=== PATIENT | female | born 1995 | race Caucasian/White ===

== ENCOUNTER 2017-01-22 00:39 | Emergency (ER) | payer MEDICAID ==
[2017-01-22 01:30] LABS: BASOPHIL % 0.7 % (0-2); PLATELET COUNT 234 x10^3mcL (130-400)
[2017-01-22 01:32] LABS: RED CELL DISTRIBUTION WIDTH 19.9 % (11.5-14.5)
[2017-01-22 01:46] LABS: CALCIUM 8.6 mg/dL (8.5-10.1); CARBON DIOXIDE 29.5 mmol/L (21-32); CHLORIDE SERUM 104 mmol/L (98-107); CREATININE SERUM 0.7 mg/dL (0.6-1.0); GFR1 > 60 mL/min; GLUCOSE SERUM 106 mg/dL (74-106); POTASSIUM SERUM 3.6 mmol/L (3.5-5.1); SODIUM SERUM 140 mmol/L (136-145)
[2017-01-22 02:02] LABS: ALBUMIN 3.7 g/dL (3.4-5.0); ALKALINE PHOSPHATASE 79 U/L (46-116); ALT/SGPT 22 U/L (14-59); AMYLASE 52 U/L (25-115); AST/SGOT 17 U/L (15-37); BILIRUBIN TOTAL 0.22 mg/dL (0.20-1.00); LIPASE 121 IU/L (73-393); TOTAL PROTEIN, SERUM 8.1 g/dL (6.4-8.2)
[2017-01-22 04:02] VITALS: BP 125/56
== END 2017-01-22 04:02 | disposition home or self-care (01) ==
LOC: ED 00:39
PROVIDERS: Specialist
DX: K80.50 Calculus of bile duct without cholangitis or cholecystitis without obstruction (principal)
CPT/HCPCS: 83880; J1885; J2405; J3010; Q0092

== ENCOUNTER 2018-07-16 14:00 | Inpatient (IN) | payer MEDICAID ==
[~2018-07-16] VITALS: Ht 157.5 cm; Wt 111.1 kg
[2018-07-16 14:31] VITALS: Ht 157.5 cm; Wt 111.1 kg
[2018-07-16 16:27] LABS: CALCIUM 8.2 mg/dL (8.5-10.1); CARBON DIOXIDE 26.4 mmol/L (21-32); CHLORIDE SERUM 107 mmol/L (98-107); CREATININE SERUM 0.6 mg/dL (0.6-1.0); GFR1 > 60 mL/min; GLUCOSE SERUM 102 mg/dL (74-106); SODIUM SERUM 143 mmol/L (136-145)
[2018-07-16 16:29] LABS: BASOPHIL % 0.6 % (0-2); PLATELET COUNT 246 x10^3mcL (130-400)
[2018-07-16 16:36] LABS: RED CELL DISTRIBUTION WIDTH 18.6 % (11.5-14.5)
[2018-07-16 16:37] LABS: rbc morphology (normal/abnorm) ABNORMAL (NORMAL)
[2018-07-16 16:38] LABS: ALBUMIN 3.5 g/dL (3.4-5.0); ALKALINE PHOSPHATASE 61 U/L (46-116); ALT/SGPT 19 U/L (14-59); AST/SGOT 12 U/L (15-37); BILIRUBIN TOTAL 0.36 mg/dL (0.20-1.00); TOTAL PROTEIN, SERUM 7.5 g/dL (6.4-8.2)
[2018-07-16 18:27] LABS: MAGNESIUM 2.1 mg/dL (1.8-2.4); PHOSPHOROUS 3.9 mg/dL (2.5-4.9)
[2018-07-16 19:22] LABS: microscopic required? YES; urine erythrocyte 3+ (NEGATIVE)
[2018-07-16 20:21] VITALS: BP 104/46
[2018-07-16 23:40] VITALS: BP 105/49
[2018-07-17 05:32] VITALS: BP 99/50
[2018-07-17 06:21] LABS: CALCIUM 8.4 mg/dL (8.5-10.1); CARBON DIOXIDE 26.8 mmol/L (21-32); CHLORIDE SERUM 107 mmol/L (98-107); CREATININE SERUM 0.7 mg/dL (0.6-1.0); GFR1 > 60 mL/min; GLUCOSE SERUM 86 mg/dL (74-106); POTASSIUM SERUM 4.2 mmol/L (3.5-5.1); SODIUM SERUM 141 mmol/L (136-145)
[2018-07-17 07:49] LABS: BASOPHIL % 0.6 % (0-2); PLATELET COUNT 221 x10^3mcL (130-400)
[2018-07-17 08:21] LABS: RED CELL DISTRIBUTION WIDTH 21.1 % (11.5-14.5)
[2018-07-17 08:50] VITALS: BP 96/52
[2018-07-17] MEDS ORDERED: FERROUS SULFAT325 M2 PO (12:00)
[2018-07-17 12:23] VITALS: BP 96/52
== END 2018-07-17 13:10 | disposition home or self-care (01) | DRG 663 ==
LOC: ED 14:00 → DU 17:55 → MU 20:20 → DU 20:21
PROVIDERS: Emergency Medicine; ADMIT Internal Medicine
PROC: 30233N1 Transfusion of Nonautologous Red Blood Cells into Peripheral Vein, Percutaneous Approach (ICD-10-PCS; principal; 2018-07-16)
DX: D62 Acute posthemorrhagic anemia (principal); N17.0 Acute kidney failure with tubular necrosis; N93.8 Other specified abnormal uterine and vaginal bleeding; E66.01 Morbid (severe) obesity due to excess calories; R80.9 Proteinuria, unspecified; Z71.3 Dietary counseling and surveillance
CPT/HCPCS: J7030; P9016; Q0092; Q0163